=== PATIENT | male | born 2000 | race Caucasian/White ===

== ENCOUNTER 2022-02-10 17:02 | Emergency (ER) | payer OTHER, SELFPAY ==
[2022-02-10 17:09] VITALS: BP 109/66; PULSE 57; RESP 18; TEMP 36.5; O2SAT 98; BMI 20.5
--- NOTE | 2022-02-10 17:47 | ED_ITS ---
HPI - General Adult General Time Seen by Provider: 17:47 Date Seen: 02/10/22 Chief complaint: Unspecified Complaint, Adult Stated complaint: Rabies Shot Time Seen by Provider: 02/10/22 17:43 Source: patient and RN notes reviewed Mode of arrival: ambulatory Limitations: no limitations History of Present Illness HPI narrative: Patient was advised by the [place] department of [facility] to come and to obtain rabies vaccination/immune globulin. Patient had taken a bat that he had found in his room in for testing. Unfortunately the rabies testing came back inconclusive on the bat. He thinks it may have been too long. They have advised him that he should seek treatment. There is no known definite contact but the bat was found in his room. Patient is seeking treatment as advised by [place] [facility] complaint: Bat exposure Related Data Home Medications Medication Instructions Recorded Confirmed No Known Home Medications 02/10/22 02/10/22 Allergies Allergy/AdvReac Type Severity Reaction Status Date / Time No Known Drug Allergies Allergy Verified 02/10/22 17:09 Review of Systems Narrative: As per HPI PFSH PFSH Social History Smoking Status: Smoker, status unknown Do you use any of these nicotine containing products: None Exam Const: Vital Signs, click to edit/add: Vital Signs - 24 hr 02/10/22 17:09 Temperature 97.7 F Pulse Rate [Right Pulse Oximeter] 57 L Respiratory Rate 18 Blood Pressure [Ri ght Upper Arm] 109/66 Pulse Oximetry 98 Oxygen Delivery Me thod Room Air Patient is an alert 21-year-old male, ambulatory in the ED of his own accord. Conversive and pleasant. Documenting provider has reviewed patient's vital signs: yes Course Course Hospital Course: We have discussed pros and cons of receiving the medicines/side effects. He has been advised to get this done by a [facility]. I will order rabies vaccine series and rabies immune globulin. Vital Signs Vital signs: Initial Vital Signs Temperature 97.7 F 02/10/22 17:09 Temperature Source Temporal Artery Scan 02/10/22 17:09 Pulse Rate 57 L 02/10/22 17:09 Respiratory Rate 18 02/10/22 17:09 Blood Pressure 109/66 02/10/22 17:09 Blood Pressure Mean 80 02/10/22 17:09 Blood Pressure Position Sitting 02/10/22 17:09 Pulse Oximetry 98 02/10/22 17:09 Oxygen Delivery Method 02/10/22 17:09 Vital Signs Temperature 97.7 F 02/10/22 17:09 Pulse Rate 57 L 02/10/22 17:09 Respiratory Rate 18 02/10/22 17:09 Blood Pressure 109/66 02/10/22 17:09 Pulse Oximetry 98 02/10/22 17:09 Oxygen Delivery Method 02/10/22 17:09 Temperature 97.7 F 02/10/22 17:09 Pulse Rate 57 L 02/10/22 17:09 Respiratory Rate 18 02/10/22 17:09 Blood Pressure 109/66 02/10/22 17:09 Pulse Oximetry 98 02/10/22 17:09 Oxygen Delivery Method 02/10/22 17:09 Critical Care Time Critical Care Time Critical Care Time: No Discharge Plan Discharge Clinical Impression: Exposure to bat without known bite Patient Disposition: Home, Self-Care Condition: Stable Instructions: Rabies (ED) Additional Instructions: You will need to return for subsequent rabies vaccines on days 3, 7 and 14. Should you have any muscle discomfort or symptoms from the vaccination or the immune globulin, can take Tylenol and/or ibuprofen per bottle directions as needed. Prescriptions: No Action No Known Home Medications Stand Alone Forms: MyHealth Info Instructions
[2022-02-10] MEDS: RABIES IMMUNE GLOBULIN 150 UNIT/ML INJ 1455 UNIT INFILTRATI (18:30)
== END 2022-02-10 18:45 | disposition home or self-care (01) ==
LOC: ED 18:21
PROVIDERS: Emergency Provider Family Medicine
DX: Z20.3 Contact with and (suspected) exposure to rabies (principal)
CPT/HCPCS: 90377; 90471; 90675; 99282; 99283

== ENCOUNTER 2022-02-13 10:41 | Outpatient (RCR) | payer OTHER, SELFPAY ==
[2022-02-13 11:21] VITALS: BP 111/69; PULSE 50; RESP 18; TEMP 36.2; O2SAT 98
== END 2022-02-13 16:35 | disposition home or self-care (01) ==
PROVIDERS: Visit Provider Family Medicine
DX: Z23 Encounter for immunization (principal)
CPT/HCPCS: 80307; 90471; 90675